=== PATIENT | female | born 1970 | race Caucasian/White ===

== ENCOUNTER → 2023-10-25 08:46 | Outpatient (REF) | payer BC, SELFPAY ==
[2023-10-25 09:23] LABS: % Basophils 0.5 % (0-2); % Eosinophils 4.4 % (0-6); % Immature Granulocytes 0.3 % (0-0.5); % Lymphocytes 38.1 % (20.5-51.1); % Monocytes 8.2 % (1.7-9.3); % Neutrophils 48.5 % (42.2-75.2); Absolute Eosinophils 0.2 10^3/uL (0-0.7); Absolute Lymphocytes 1.4 10^3/uL (1.2-3.4); Absolute Monocytes 0.3 10^3/uL (0.1-0.6); Absolute Neutrophils 1.8 10^3/uL (1.4-6.5); Hematocrit 37.2 % (37.0-47.0); Hemoglobin 12.1 g/dL (12.0-16.0); Mean Corp Hgb Conc. 32.5 g/dL (33.0-37.0); Mean Corpuscular Hgb 26.5 pg (27.0-31.0); Mean Corpuscular Volume 81.6 fL (81.0-99.0); Mean Platelet Volume 8.9 fL (7.4-10.4); Nucleated Red Blood Cells % 0 %; Platelet Count 227 10^3/uL (130-400); Red Blood Cell Count 4.56 10^6/uL (4.20-5.40); Red Cell Dist. Width 14.4 % (11.5-14.5); White Blood Cell Count 3.7 10^3/uL (4.8-10.8)
[2023-10-25 09:52] LABS: Iron 60 ug/dl (37-170)
[2023-10-25 09:55] LABS: Percent Saturation 13 % (20-50); Total Iron Binding Capacity 438 ug/dl (265-497)
[2023-10-25 10:22] LABS: Ferritin 5.2 ng/ml (11.1-264.0)
== END ==
LOC: REG 08:46
PROVIDERS: ATTENDING PHYSICIAN Nurse Practitioner Family
DX: D50.9 Iron deficiency anemia, unspecified (principal)
CPT/HCPCS: 36415; 82728; 83540; 83550; 85025

== ENCOUNTER → 2024-05-09 07:56 | Outpatient (REF) | payer BC, SELFPAY ==
[2024-05-09 10:23] LABS: ALT (SGPT) 16 U/L (0-35); AST (SGOT) 21 U/L (14-36); Albumin 4.2 g/dl (3.5-5.0); Alkaline Phosphatase 71 U/L (38-126); Blood Urea Nitrogen 14 mg/dl (7-17); Calcium 9.3 mg/dl (8.4-10.2); Carbon Dioxide 28 mmol/L (22-30); Chloride 104 mmol/L (98-107); Glucose 99 mg/dl (70-99); HDL Cholesterol 53 mg/dl; Iron 79 ug/dl (37-170); LDL Cholesterol, Calculated 177 mg/dl; Potassium 4.1 mmol/L (3.5-5.1); Sodium 139 mmol/L (135-145); Total Bilirubin 0.5 mg/dl (0.2-1.3); Total Cholesterol 246 mg/dl (50-199); Total Protein 6.6 g/dl (6.3-8.2); Triglyceride 81 mg/dl (10-149); Very Low Density Lipoprotein 16 mg/dl (0-30); eGFR > 60.00
[2024-05-09 10:32] LABS: Percent Saturation 18 % (20-50); Total Iron Binding Capacity 433 ug/dl (265-497)
[2024-05-09 10:58] LABS: Ferritin 5.1 ng/ml (11.1-264.0)
[2024-05-09 12:01] LABS: Glycohemoglobin (HgbA1c) 5.5 % (4.0-5.6)
== END ==
LOC: OLAB 07:56
PROVIDERS: ATTENDING PHYSICIAN Physician Assistant Medical
DX: E78.2 Mixed hyperlipidemia (principal); D50.9 Iron deficiency anemia, unspecified
CPT/HCPCS: 80053; 80061; 82728; 83036; 83540; 83550

== ENCOUNTER → 2024-07-22 14:54 | Outpatient (REF) | payer BC, SELFPAY | LOC: DHSLP 14:54 | PROVIDERS: ATTENDING PHYSICIAN Physician Assistant Medical | DX: G47.33 Obstructive sleep apnea (adult) (pediatric) (principal) | CPT/HCPCS: 95800 ==

== ENCOUNTER → 2025-05-07 08:10 | Outpatient (REF) | payer BC, SELFPAY ==
[2025-05-07 09:49] LABS: ALT (SGPT) 25 U/L (0-35); AST (SGOT) 21 U/L (14-36); Albumin 4.0 g/dl (3.5-5.0); Alkaline Phosphatase 80 U/L (38-126); Blood Urea Nitrogen 14 mg/dl (7-17); Calcium 9.0 mg/dl (8.4-10.2); Carbon Dioxide 29 mmol/L (22-30); Chloride 106 mmol/L (98-107); Glucose 97 mg/dl (70-99); HDL Cholesterol 50 mg/dl; Iron 41 ug/dl (37-170); LDL Cholesterol, Calculated 120 mg/dl; Potassium 4.7 mmol/L (3.5-5.1); Sodium 141 mmol/L (135-145); Total Protein 6.6 g/dl (6.3-8.2); Very Low Density Lipoprotein 16 mg/dl (0-30); eGFR > 60.00
[2025-05-07 09:58] LABS: Total Iron Binding Capacity 414 ug/dl (265-497)
[2025-05-07 10:22] LABS: Ferritin 5.6 ng/ml (11.1-264.0)
== END ==
LOC: REG 08:10
PROVIDERS: ATTENDING PHYSICIAN Physician Assistant Medical
DX: E78.2 Mixed hyperlipidemia (principal); D50.9 Iron deficiency anemia, unspecified
CPT/HCPCS: 36415; 80053; 80061; 82728; 83540; 83550

== ENCOUNTER → 2025-08-01 13:42 | Outpatient (REF) | payer BC, SELFPAY | LOC: WDC 13:42 | PROVIDERS: ATTENDING PHYSICIAN Physician Assistant Medical | DX: Z12.31 Encounter for screening mammogram for malignant neoplasm of breast (principal) | CPT/HCPCS: 77063; 77067 ==